=== PATIENT | male | born 1960 | race Caucasian/White ===

== ENCOUNTER 2019-05-07 07:45 | Day surgery (SDC) | payer MEDICARE, OTHER ==
[2019-05-06 10:53] VITALS: BMI 21.4
[~2019-05-07 07:45] MED LIST: DEXAMETHASONE SOD PHOSPHATE 10 MG/ML 1 ML VIAL IV ONE; LACTATED RINGERS 1,000 ML IV SCH; LIDOCAINE 1% 20 ML VIAL (10MG/ML) FOR IV START INTRADERMA PRN; MIDAZOLAM 2 MG/2 ML VIAL IV PRN; fentaNYL (PF) 50 MCG/ML 2 ML AMP IV PRN
[2019-05-07 08:01] VITALS: TEMP 97.5
[2019-05-07] MEDS ORDERED: LIDOCAINE 1% 20 ML VIAL (10MG/ML) FOR IV START INTRADERMA ONE (08:03)
[2019-05-07] MEDS ORDERED: PROPOFOL 10 MG/ML 20 ML VIAL IV ONE (08:19)
--- NOTE | 2019-05-07 08:25 | P.GSHP ---
History of Present Illness H&P Date: 05/07/19 Chief Complaint: a history of rec a history of rectal, screening Patient here today for colonoscopy. Last colonoscopy 2015. This was performed by Dr. Gomez. In 2012 he had an additional colonoscopy by myself. Multiple polyps seen at that time. Prior to that the patient had a history of rectal cancer and underwent abdominal perineal resection. Doing well at this time. No complaints. Past Medical History Past Medical History: Cancer, Eye Disorder, Liver Disease, Osteoarthritis (OA) Additional Past Medical History / Comment(s): GLAUCOMA. HEPATITIS C. COLON CA History of Any Multi-Drug Resistant Organisms: None Reported Past Surgical History: Back Surgery, Bowel Resection Additional Past Surgical History / Comment(s): WITH COLOSTOMY Past Anesthesia/Blood Transfusion Reactions: No Reported Reaction Smoking Status: Current every day smoker - Past Family History Mother Family Medical History: Deep Vein Thrombosis (DVT) Medications and Allergies Home Medications Medication Instructions Recorded Confirmed Type Diazepam 10 mg PO HS 12/22/13 05/07/19 History oxyCODONE-APAP 10-325MG [Percocet 1 tab PO TID PRN 12/22/13 05/07/19 History 10-325 mg] Dextroamphetamine/Amphetamine 15 mg PO BID 05/06/19 05/07/19 History [Adderall] oxyCODONE ER [OxyCONTIN] 80 mg PO TID 05/06/19 05/07/19 History Allergies Allergy/AdvReac Type Severity Reaction Status Date / Time diphenhydramine HCl Allergy Nausea & Verified 05/07/19 07:59 [From Benadryl] Vomiting & Diarrhea Surgical - Exam Vital Signs Temp Pulse Resp BP Pulse Ox 97.5 F L 77 16 129/86 97 05/07/19 08:00 05/07/19 08:00 05/07/19 08:00 05/07/19 08:00 05/07/19 08:00 Physical exam: General: Well-developed, well-nourished HEENT: Normocephalic, sclerae nonicteric Abdomen: Nontender, nondistended, left-sided ostomy Extremities: No edema Neuro: Alert and oriented Assessment and Plan (1) Colon cancer screening Narrative/Plan: Will proceed with colonoscopy at this time. Current Visit: Yes Status: Acute Code(s): Z12.11 - ENCOUNTER FOR SCREENING FOR MALIGNANT NEOPLASM OF COLON SNOMED Code(s): 562283369
--- NOTE | 2019-05-07 08:42 | P.PCN ---
Date of Procedure: 05/07/19 Procedure(s) Performed: PREOPERATIVE DIAGNOSIS: Colon cancer screening, history of rectal cancer POSTOPERATIVE DIAGNOSIS: Transverse colon polyps 2, diverticulosis PROCEDURE: Colonoscopy snare polypectomy ANESTHESIA: MAC SURGEON: Jose A Castro M.D. SPECIMENS:. Colon polyp ENDOSCOPIC PROCEDURE: The patient was placed on the endoscopy table in the left decubitus position. The Olympus colonoscope was inserted into the left-sided ostomy and passed under direct visualization to the base of the cecum. The appendiceal orifice was visualized. From that point the scope was slowly withdrawn inspecting all surfaces carefully. There were no neoplastic inflammatory or polypoid lesions throughout the cecum or ascending colon. In the transverse colon 2 small polyps were identified and removed using the snare with cautery technique. The remainder of the transverse descending and sigmoid colon appeared normal. There was mild scattered diverticulosis. The patient was taken to the recovery room in stable condition per anesthesia guidelines. RECOMMENDATIONS: Await biopsy results. Follow-up colonoscopy 3-5 years.
[2019-05-07 08:56] VITALS: PULSE 74; RESP 14
[2019-05-07 09:14] VITALS: BP 132/79
== END 2019-05-07 09:25 | disposition home or self-care (01) ==
LOC: ORWHC2ENDO 07:45
PROVIDERS: ATTEND Surgery
DX: Z12.11 Encounter for screening for malignant neoplasm of colon (principal); D12.3 Benign neoplasm of transverse colon; K57.30 Diverticulosis of large intestine without perforation or abscess without bleeding; Z85.048 Personal history of other malignant neoplasm of rectum, rectosigmoid junction, and anus; Z90.49 Acquired absence of other specified parts of digestive tract; Z93.3 Colostomy status; K76.9 Liver disease, unspecified; M19.90 Unspecified osteoarthritis, unspecified site; H40.9 Unspecified glaucoma; Z86.19 Personal history of other infectious and parasitic diseases; F17.210 Nicotine dependence, cigarettes, uncomplicated; Z84.89 Family history of other specified conditions; Z79.891 Long term (current) use of opiate analgesic; Z79.899 Other long term (current) drug therapy; Z97.2 Presence of dental prosthetic device (complete) (partial); Z88.8 Allergy status to other drugs, medicaments and biological substances
CPT/HCPCS: 88305; 44394; J2704

== ENCOUNTER 2023-09-05 10:52 | Day surgery (SDC) | payer MEDICARE, OTHER ==
[2023-09-04 12:12] VITALS: BMI 19.2
[2023-09-05] MEDS ORDERED: LACTATED RINGERS 1,000 ML IV ONE (11:37)
[2023-09-05 11:55] VITALS: RESP 16; TEMP 97
[2023-09-05] MEDS ORDERED: PROPOFOL 10 MG/ML 20 ML VIAL IV ONE (12:29)
[2023-09-05] MEDS ORDERED: LIDOCAINE 1% INJ 10MG/ML (20 ML MDV) ONE (12:29)
--- NOTE | 2023-09-05 12:52 | P.PCN ---
Date of Procedure: 09/05/23 Procedure(s) Performed: Brief history: Patient is a pleasant 63-year-old white male scheduled for an elective upper endoscopy as well as colonoscopy as a part of evaluation of severe periumbilical abdominal pain for the last 1-1/2 years duration. He has history of rectal cancer diagnosed in 2011 status post resection with colostomy. Last colonoscopy was 4 years ago. Procedure performed: Esophagogastroduodenoscopy with biopsy Colonoscopy with biopsy. Preoperative diagnosis: Periumbilical abdominal pain of 2 years duration History of rectal cancer diagnosed in 2011 Anesthesia: MAC Procedure: After informed consent was obtained from the patient was brought into the endoscopy unit and IV sedation was administered by anesthesia under continuous monitoring. Initially upper endoscopy was done. The Olympus GF 160 video endoscope was inserted inserted into the mouth and esophagus intubated without any difficulty and was gradually advanced into the stomach and duodenum and carefully examined. The bulb and second part of the duodenum appeared normal. The scope was then withdrawn into the stomach adequately insufflated with air and upon careful examination the antrum and body, cardia and fundus appeared normal. The scope was then withdrawn into the esophagus. The GE junction was located at 40 cm to the incisors. It appeared regular with no erythema erosions or ulcerations. Rest of the esophagus appeared normal. Patient tolerated the procedure well. At this time the patient continued to remain sedation. Initial digital examination of the colostomy site in the left upper quadrant appeared slightly narrowed. The Olympus Olympus CF 160 video pediatriccolonoscope was then i nserted into the colostomy sitegradually advanced to the cecum without any difficulty. Careful examination was performed as the scope was gradually being withdrawn. The prep was fair. In the cecum there was a 4 mm polyp that was removed by cold biopsy. The ascending colon, transverse colon, descending colon, appeared normal. Patient tolerated the procedure well. Impression: 1. Upper endoscopy revealed diffuse gastritis involving the antrum and body the stomach status post multiple biopsies but no evidence of peptic ulcer disease 2. Colonoscopy via colostomy site revealed a 4 mm cecal polyp status post cold biopsy. Rest of the colon appeared normal Recommendations: Findings of this examination were discussed with the patient as well as his family. He was advised to follow with the biopsy results. Continue with omeprazole 20 mg twice daily. Follow up in office in 2-3 weeks. He colonoscopy in 3 years.
[2023-09-05 13:22] VITALS: PULSE 65
[2023-09-05 13:51] VITALS: BP 154/72
== END 2023-09-05 14:06 | disposition home or self-care (01) ==
LOC: ORWHC2ENDO 10:52
PROVIDERS: ATTEND Internal Medicine Gastroenterology
DX: D12.0 Benign neoplasm of cecum (principal); K29.50 Unspecified chronic gastritis without bleeding; K31.9 Disease of stomach and duodenum, unspecified; Z85.048 Personal history of other malignant neoplasm of rectum, rectosigmoid junction, and anus; Z93.3 Colostomy status; Z90.49 Acquired absence of other specified parts of digestive tract; Z87.891 Personal history of nicotine dependence; Z92.21 Personal history of antineoplastic chemotherapy; Z92.3 Personal history of irradiation; Z79.899 Other long term (current) drug therapy; Z88.8 Allergy status to other drugs, medicaments and biological substances; Z79.891 Long term (current) use of opiate analgesic
CPT/HCPCS: 88305; 44389; 43239; J2001; J2704